=== PATIENT | female | born 1960 | race Asian ===

== ENCOUNTER 2024-11-04 20:32 | Emergency (ER) | payer SELFPAY ==
[~2024-11-04] VITALS: Ht 152.4 cm; Wt 63.0 kg
[2024-11-04] MEDS ORDERED: TETANUS, DIPHTHERIA, PERTUSSIS VAC/PF 0.5ML (>10YR OLD) IM ONE (21:45)
[2024-11-04] MEDS: ACETAMINOPHEN 325MG TABLET PO STA (22:45)
[2024-11-04] MEDS: LIDOCAINE HCL/PF 1% 10 MG/ML 5ML VIAL INFIL ONE (22:46)
[2024-11-04] MEDS: BACITRACIN ZINC OINT UDPKT TOP ONE (22:46)
[2024-11-04] MEDS ORDERED: IBUP-2029 PO (23:13)
[2024-11-04] MEDS ORDERED: CEPH500C2 MT (23:13)
[2024-11-04] MEDS: CEPHALEXIN 250MG CAPSULE PO ONE (23:31)
[2024-11-04] MEDS: TETANUS, DIPHTHERIA, PERTUSSIS VAC/PF 0.5ML (>10YR OLD) IM ONE (23:40)
[2024-11-04 23:50] VITALS: BP 166/85; PULSE 64; RESP 17; O2SAT 99
== END 2024-11-04 23:56 | disposition home or self-care (01) ==
LOC: ER 20:32
DX: S62.521A Displaced fracture of distal phalanx of right thumb, initial encounter for closed fracture (principal); S61.011A Laceration without foreign body of right thumb without damage to nail, initial encounter; I10 Essential (primary) hypertension; Z90.710 Acquired absence of both cervix and uterus; X58.XXXA Exposure to other specified factors, initial encounter; Y93.89 Activity, other specified; Y92.89 Other specified places as the place of occurrence of the external cause; Y99.8 Other external cause status
CPT/HCPCS: 99283; 73140; 90715; 12002; 90471; J2003